=== PATIENT | female | born 1950 | race Caucasian/White ===

== ENCOUNTER 2016-05-03 05:05 | Inpatient (IN) | payer OTHER ==
[2016-04-12 08:39] VITALS: Ht 154.9 cm; Wt 132.6 kg
--- NOTE | 2016-04-12 09:27 | PAT Medication Instructions ---
Service Date Apr 12, 2016. Current Home Medication List Calcium/Vitamin D (Os-Christopher 500 Plus D), 1 TAB PO DAILY Fish Oil ([place]-3), 2 CAP PO NOON Multivitamin (Multivitamin), 1 TAB PO QAM Simvastatin (Zocor), 80 MG PO QPM Medication Instructions For Your Scheduled Surgery - Hold the following medications 10 days prior to surgery: Fish Oil ([place]-3), 2 CAP PO NOON - Hold the following medications the morning of surgery: Multivitamin (Multivitamin), 1 TAB PO QAM Calcium/Vitamin D (Os-Christopher 500 Plus D), 1 TAB PO DAILY - Take the following medications as scheduled the night before surgery: Simvastatin (Zocor), 80 MG PO QPM If you have any questions please call us at [phone] or [phone] ( Khloe) or [phone]
[2016-04-12 10:12] LABS: BASO % 0.5 %; BASO ABS # 0.03 K/uL (0-0.2); COMPLETE YES; EOS % 4.7 %; HEMATOCRIT 41.3 % (37-47); IG% 0.2 %; LYMPH % 25.2 %; MEAN CELL VOLUME 90.4 fL (80-100); MEAN CORPUSCULAR HEMOGLOBIN 30.9 pg (25-34); MEAN CORPUSCULAR HGB CONC 34.1 g/dl (32-36); MONO % 7.9 %; NEUT % 61.5 %; PLATELET COUNT 228 K/uL (130-400); RED BLOOD COUNT 4.57 M/uL (4.2-5.4); WHITE BLOOD COUNT 5.56 K/uL (4.8-10.8)
[2016-04-12 10:24] LABS: INR 0.9 (0.9-1.1)
--- NOTE | 2016-04-12 10:24 | DIAGNOSTIC IMAGING REPORT ---
CHEST PREADMISSION(PA/LAT) CLINICAL HISTORY: Preoperative chest COMPARISON STUDY: 01/22/2013 FINDINGS: The heart remains borderline enlarged. There is persistent aortic tortuosity/ectasia. There is no focal pulmonary consolidation. There is no failure. There are no pleural effusions.[ Degenerative changes are present within the dorsal spine. IMPRESSION: No significant change. No active disease in the chest. Electronically signed by: Kevin Benitez M.D. 04/12/2016 10:22 AM
[2016-04-12 10:33] LABS: BLOOD UREA NITROGEN 14 mg/dl (7-18); BUN/CREATININE RATIO 17.1 (10-20); C-REACTIVE PROTEIN < 0.29 mg/dl (0-0.29); CALCIUM 8.9 mg/dl (8.5-10.1); CARBON DIOXIDE 26 mmol/L (21-32); CHLORIDE 109 mmol/L (98-107); CREATININE 0.84 mg/dl (0.60-1.20); GLUCOSE 96 mg/dl (70-99); POTASSIUM 4.1 mmol/L (3.5-5.1); SODIUM 143 mmol/L (136-145)
--- NOTE | 2016-04-27 23:00 | HISTORY & PHYSICAL EXAMINATION ---
DATE OF ADMISSION: 05/03/2016 CHIEF COMPLAINT: Left knee pain. HISTORY OF PRESENT ILLNESS: A 65-year-old female who is now almost 7 years out from right knee replacement. The right knee is doing well. The left knee has been bothering for quite some time. It is starting to really limit her activities. It has gradually just gotten worse with weightbearing. Her walking tolerance is limited. She describes global pain. She would like to have her left knee replaced. She has been through extensive conservative care. Of note, the patient worked at [employer] and does live by herself. PAST MEDICAL HISTORY: Significant for: 1. Elevated cholesterol. 2. Obesity with BMI of 55. 3. Gastroesophageal reflux disease. PAST SURGICAL HISTORY: Previous surgeries include: 1. Cholecystectomy 2009. 2. Right knee replacement on 09/25/2009. ALLERGIES: PENICILLIN WHICH CAUSES HIVES. CURRENT MEDICINES: Include: 1. Zocor 80 mg at nighttime. 2. Multivitamin. 3. Calcium with vitamin D. 4. Fish oil. SOCIAL HISTORY: A 65-year-old female. She used to work at [employer]. Lives by herself. Does not smoke. FAMILY HISTORY: Noncontributory. REVIEW OF SYSTEMS: Negative for diabetes, neurologic problems, vascular problems, bleeding disorders. She is obese with a BMI of 55. PHYSICAL EXAMINATION: GENERAL: Reveals a healthy pleasant female who looks to be in reasonably good health. HEENT: Benign. NECK: Supple. No lymphadenopathy. LUNGS: Clear to auscultation. HEART: Regular rate and rhythm. ABDOMEN: Soft, nontender, nondistended. EXTREMITIES: Grossly neurovascularly intact except as follows: Examination of the left knee, the patient walks with a slight varus alignment to her knee. Very large soft tissue envelope. Range of motion is 5-10 degrees short of full extension and 115 degrees of flexion. There is no instability. X-RAYS: X-rays of the left knee were reviewed. It shows advanced left knee DJD. She has complete loss of medial joint space. She has got some tibial femoral subluxation. Pretty large osteophytes both anteriorly and posteriorly. ASSESSMENT: A 65-year-old female, 6+ years out from right knee replacement with advanced left knee degenerative joint disease. She has exhausted conservative care and would like to have her knee replaced. PLAN: We are going to take her to the operating room and do left total knee replacement. The risks and benefits of this procedure were explained to the patient including but not limited to DVT, PE, , infection, neurological injury, vascular injury, bleeding problem, pain, limited range of motion, stiffness, failure to relieve symptoms, incomplete relief of symptoms, need for further surgery in the future, need for bone graft, etc. The patient understands and desires to proceed. Informed consent was obtained. THE PATIENT APPARENTLY HAS A PENICILLIN ALLERGY WHICH CAUSES HIVES. We should be able to give her Ancef. The patient used to work at [employer]. I believe she still will be discharged to home and use [facility] home health program.
[~2016-05-03] VITALS: Ht 154.9 cm; Wt 132.6 kg
[2016-05-03] VITALS (9 sets, daily range): BP systolic 86–136; BP diastolic 52–86; PULSE 52–73; TEMP 36.4–36.9; O2SAT 94–99
[~2016-05-03 05:05] MED LIST: CALC500C70 PO; MULT-506 PO; OMEG10007 PO; SIMV80TA2 PO
[2016-05-03] MEDS ORDERED: GABAPENTIN 300 MG CAP PO SCH (06:00)
[2016-05-03] MEDS ORDERED: FAMOTIDINE 20 MG TAB PO SCH (06:00)
[2016-05-03] MEDS ORDERED: LACTATED RINGER'S 1000ML 1,000 ML IV SCH (06:00)
[2016-05-03] MEDS ORDERED: METOCLOPRAMIDE HCL 10 MG TAB PO SCH (06:00)
[2016-05-03] MEDS ORDERED: LACTATED RINGER'S 500 ML IV SCH (06:00)
[2016-05-03] MEDS ORDERED: CEFAZOLIN 3000 MG/65 ML D5W 65 ML IV SCH (06:00)
[2016-05-03] MEDS ORDERED: SCOPOLAMINE 1.5 MG TDSY TD SCH (06:00)
[2016-05-03] MEDS ORDERED: LACTATED RINGER'S 1000ML IV SCH (06:00)
[2016-05-03] MEDS ORDERED: BUPIVACAINE LIPOSOME 266 MG, BUPIVACAINE/EPINEPHRINE INJ 50 ML, SODIUM CHLORIDE 0.9% PF... INFIL SCH ×3 (06:00)
[2016-05-03] MEDS ORDERED: ACETAMINOPHEN 500 MG TAB PO SCH (06:00)
[2016-05-03] MEDS ORDERED: FENTANYL CITRATE INJ 50 MCG/1 ML 2 ML VIAL ONE (06:18)
[2016-05-03] MEDS ORDERED: ONDANSETRON INJ 2 MG/ML 2 ML VIAL ONE (06:18)
[2016-05-03] MEDS ORDERED: PROPOFOL IV EMULSION 10 MG/ML 20 ML VIAL IV ONE ×2 (06:18→08:17)
[2016-05-03] MEDS ORDERED: LIDOCAINE HCL 2% 2 ML VIAL (20MG/ML) ONE (06:18)
[2016-05-03] MEDS ORDERED: MIDAZOLAM HCL 1 MG/ML 2ML VIAL ONE (06:18)
[2016-05-03] MEDS ORDERED: BUPIVACAINE 0.5 % 5 MG/1 ML PF 10ML VIAL ONE (06:28)
[2016-05-03] MEDS ORDERED: TRANEXAMIC ACID INJ 1,000 MG in SODIUM CHLORIDE 0.9% 100ML 100 ML IV SCH ×2 (06:30→15:00)
[2016-05-03] MEDS ORDERED: BUPIVACAINE LIPOSOME 1/3% 266 MG/20 ML VIAL INFIL ONE (06:32)
[2016-05-03] MEDS ORDERED: ONDANSETRON INJ 2 MG/ML 2 ML VIAL IV PRN ×2 (06:45→09:00)
[2016-05-03] MEDS ORDERED: ATROPINE SULFATE 0.1 MG/ML 5ML SYR IV PRN (06:45)
[2016-05-03] MEDS ORDERED: EpHEDrine SULFATE INJ 50 MG/ML AMP IV PRN (06:45)
[2016-05-03] MEDS ORDERED: FENTANYL CITRATE INJ 50 MCG/1 ML 2 ML VIAL IV PRN (06:45)
--- NOTE | 2016-05-03 06:54 | History & Physical Bridge Note ---
H&P Re-Evaluation Bridge Note: I have examined the patient, reviewed the History & Physical and in the interval since the performance of the History & Physical I have noted the following changes of clinical significance: No changes noted
[2016-05-03] MEDS ORDERED: BACITRACIN 50000 UNIT VIAL IR ONE (07:52)
--- NOTE | 2016-05-03 08:58 | [facility] Post Operative Brief Note ---
Immediate Operative Summary Operative Date May 03, 2016. Pre-Operative Diagnosis Advanced Left Knee Degenerative Joint Disease Post-Operative Diagnosis Advanced Left Knee Degenerative Joint Disease Procedure(s) Performed Left Total Knee Arthroplasty Surgeon Dr. Calderon [employer] Worker Surgeon(s) HEATHER Grossman Estimated Blood Loss 50 ml Findings Left Knee DJD Fluids (cc crystalloids) 1500 cc Specimens A. Left Knee Bone and Tissue Drains None Anesthesia Spinal Complication(s) None Disposition Recovery Room / PACU
[2016-05-03] MEDS ORDERED: MoRPHine SULFATE 2 MG/ML CARP IV PRN (09:00)
[2016-05-03] MEDS ORDERED: MAGNESIUM HYDROXIDE SUSP 30 ML UDC PO PRN (09:00)
[2016-05-03] MEDS ORDERED: SILVER SULFADIAZINE 1% CR 50 GM JAR EXT PRN (09:00)
[2016-05-03] MEDS ORDERED: BISACODYL 10 MG SUPP PR PRN (09:00)
[2016-05-03] MEDS ORDERED: MULTIVITAMIN TAB PO SCH (09:00)
[2016-05-03] MEDS ORDERED: METOCLOPRAMIDE HCL INJ 5 MG/ML 2 ML VIAL IV PRN (09:00)
[2016-05-03] MEDS ORDERED: DiphenhydrAMINE HCL 50 MG/ML VIAL IV PRN (09:00)
[2016-05-03] MEDS ORDERED: ZOLPIDEM TARTRATE 5 MG TAB PO PRN (09:00)
[2016-05-03] MEDS ORDERED: ALUMINUM/MAGNESIUM/SIMETH (MAALOX MAX) 30 ML UDC PO PRN (09:00)
--- NOTE | 2016-05-03 09:36 | OPERATIVE REPORT ---
DATE OF OPERATION: 05/03/2016 SURGEON: Dr. Willie Calderon. BRANCH ASSOCIATE TELLER: HEATHER Morales PREOPERATIVE DIAGNOSIS: Left knee degenerative joint disease. POSTOPERATIVE DIAGNOSIS: Same. PROCEDURE PERFORMED: Left cemented posterior stabilized total knee arthroplasty. COMPLICATIONS: None. ESTIMATED BLOOD LOSS: 50 mL. FLUID REPLACEMENT: 1500 mL crystalloid fluid replacement. ANESTHESIA: Spinal with adductor canal block. DRAINS: None. SPECIMENS: Left knee sent for pathology. TOURNIQUET TIME: 62 minutes at 400 mmHg. OPERATIVE INDICATIONS: The patient is a 65-year-old morbidly obese female with a BMI of 55, who has had a long history of bilateral knee pain and discomfort. She had a right knee replaced about 6 years ago and has done well from this. Over the past several years, she developed increasing pain and discomfort in her left knee. She failed all conservative care. X-rays revealed advanced left knee DJD. The patient elected to proceed with operative treatment. OPERATIVE FINDINGS: Operative findings revealed advanced left knee DJD. She had grade 4 prmu-ny-quie disease in all 3 compartments. She had extensive disease in the medial compartment with extensive wear of the medial tibial plateau as well as medial femoral condyle. Large knee joint effusion. Large soft tissue envelope. She has chronic ACL deficient knee. OPERATIVE IMPLANTS: Operative implants consisted of: 1. A Biomet Vanguard size 67.5 left posterior stabilized femoral component. 2. Biomet size 71 tibial tray. 3. A 14-mm posterior stabilized polyethylene insert. 4. A 34 x 8.5 all poly patella. OPERATIVE PROCEDURE: The patient was taken to the operating room, identified and placed on the operating table in the supine position. All contact areas were appropriately padded. IV antibiotics were provided by anesthesia team. A spinal anesthetic and adductor canal block had been provided in the holding area. A Bingham catheter was placed in sterile fashion. A left thigh tourniquet was then placed in the left lower extremity and it was then prepped and draped in the usual sterile fashion. Left leg was elevated and exsanguinated with Esmarch and tourniquet was placed at 400 mmHg. An anterior approach to the left knee was then performed through a longitudinal incision centered over the patella. Sharp dissection was carried out through the subcutaneous tissues down to the level of the extensor mechanism. The medial parapatellar arthrotomy was then performed. Some subperiosteal dissection was carried out medially. The fat pad was resected from beneath the patellar tendon. The lateral patellofemoral ligament was released. The patella was subluxated laterally and the knee was flexed. The osteophytes were taken off the distal femur. The PCL and the remnant of the ACL were excised from the distal femur and the tibia subluxated anteriorly. The external tibial alignment jig was then placed in the anterior face of the tibia and adjusted 16 mm medially. Proximal tibial cut was made to remove about 2 mm of bone from the most deficient aspect of the medial tibial plateau. Some osteophytes were taken off medial and posteromedially. Tibia was sized to a size 71. Attention was then drawn to the femur. The distal femur was entered with a sharp drill bit. Intramedullary canal was suctioned. A left 5-degree valgus cutting guide was placed. Distal femoral cutting block was pinned in place. Distal femoral cut was made to take an additional 3 mm of bone off the distal femur. The femur was then sized to a size 67.5. We did downsize this at least half size. The AP cutting block was pinned parallel to the epicondylar axis, which was 4 degrees of external rotation. The anterior cut, anterior chamfer, posterior cut, and posterior chamfer cuts were made. Box cutting guide was placed and adjusted slight lateral and the box cut was made. The knee was flexed. The remnants of the medial and lateral meniscus were excised. The osteophytes were taken off the posterior aspect of the femur. She did have a very large posteromedial osteophyte. Trial femoral component was placed. Tibial tray was pinned in maximum external rotation and drill and stem punch were used to create defect in proximal tibia for the tibial tray. The knee was then trialed and the 14-mm insert fit most appropriately. Attention was then drawn to the patella. The patella was cleaned of all soft tissues. The patella thickness measured 22 and was cut down to 13. It was sized to a size 34 patella. Lug holes were drilled for a 34 patella. Lateral osteophyte was removed. Patella button was placed. Knee was taken through range of motion and patella tracked nicely with no thumbs test. Attention was then drawn toward placement of the permanent components. All trial components were removed. A bone plug was placed in the distal femur to limit blood loss. A double batch of Palacos G cement was mixed. A left size 67.5 posterior stabilized femoral component, size 71 tibial tray, 14-mm posterior stabilized polyethylene insert, and a 34 x 8.5 all poly patella were then cemented in place. Knee was brought out into full extension until cement hardened. A final cement check was then performed. Pericapsular tissues were injected with 100 mL of a combination of 20 mL of Exparel, 30 mL of normal saline, and 50 mL of 0.25% Marcaine with epinephrine. The patient did receive 1 gram of tranexamic acid. The tourniquet was let down for final tourniquet time of 62 minutes. Hemostasis was assured with use of electrocautery. The wound was once again irrigated. The extensor mechanism was then closed with a combination of #1 PDS suture and #1 Vicryl suture in a [id number] fashion. Extensor mechanism was checked and found to be intact. The subcutaneous tissues were then closed with 2-0 Dexon suture in a buried interrupted fashion. Skin was closed skin javier. Leg was then cleaned and dried and a sterile dressing with Xeroform, 4 x 4, sterile cast padding and Mathieu bandage were applied. The patient then transferred to the recovery room in stable condition. The patient tolerated the procedure well with no complications. All needle and sponge counts were correct at the end of the operation. I attest to the content of the Intraoperative Record and any orders documented therein. Any exceptions are noted below. [facility]
--- NOTE | 2016-05-03 09:46 | DIAGNOSTIC IMAGING REPORT ---
TWO VIEWS LEFT KNEE CLINICAL HISTORY: Postoperative examination. FINDINGS: AP and crosstable lateral portable views of the left knee are obtained. A left knee arthroplasty is in near anatomic alignment. There has been undersurface remodeling of the patella. No acute fracture is seen. There are expected postoperative changes around the knee including skin clips, soft tissue edema, and subcutaneous gas. IMPRESSION: Expected postoperative changes status post left knee arthroplasty. No acute fracture is seen. Electronically signed by: Eric Forrest M.D. 05/03/2016 9:43 AM Dictated Date/Time: 05/03/2016 9:43 AM
--- NOTE | 2016-05-03 10:07 | Anesthesiology Progress Note ---
Anesthesia Post Op Note Date & Time May 03, 2016 at 10:06 Vital Signs Pain Intensity: 0 Vital Signs Past 12 Hours Date Time Temp Pulse Resp B/P Pulse Ox O2 Delivery O2 Flow Rate FiO2 05/03/16 09:49 95/64 05/03/16 09:44 51 14 05/03/16 09:44 49 14 99 05/03/16 09:39 48 19 99 05/03/16 09:39 48 19 05/03/16 09:37 36.6 05/03/16 09:34 47 16 98/49 97 05/03/16 09:34 48 16 05/03/16 09:29 50 15 98 05/03/16 09:29 48 15 05/03/16 09:28 96/61 05/03/16 09:26 53 19 05/03/16 09:26 54 19 99 05/03/16 09:23 94/57 05/03/16 09:21 59 14 05/03/16 09:21 67 14 95 05/03/16 09:20 58 16 98 05/03/16 09:20 57 16 05/03/16 09:18 104/53 05/03/16 09:15 55 12 97 05/03/16 09:15 56 12 05/03/16 09:13 90/57 05/03/16 09:10 57 16 05/03/16 09:10 56 16 98 05/03/16 09:08 101/54 05/03/16 09:05 79 24 99 05/03/16 09:05 59 24 05/03/16 09:05 36.4 65 16 93/52 99 Nasal Cannula 2 05/03/16 05:42 36.5 68 20 131/86 94 Room Air Notes Mental Status: alert / awake / arousable, participated in evaluation Pt Amnestic to Procedure: Yes Nausea / Vomiting: adequately controlled Pain: adequately controlled Airway Patency, RR, SpO2: stable & adequate BP & HR: stable & adequate Hydration State: stable & adequate Neuraxial Anesthesia: was administered, sensory block is resolving Anesthetic Complications: no major complications apparent
[2016-05-03] MEDS: FERROUS GLUCONATE 324 MG TAB PO SCH ×2 (12:21→18:28)
[2016-05-03] MEDS: D5W AND 1/2NSS + 20MEQ KCL 1,000 ML IV SCH ×2 (12:21→18:29)
[2016-05-03] MEDS: TAPENTADOL ER 50 MG TABCR PO SCH ×2 (12:23→20:42)
[2016-05-03] MEDS: KETOROLAC TROMETHAMINE 15 MG/ML VIAL IV. SCH ×2 (12:26→18:29)
[2016-05-03] MEDS: DOCUSATE SODIUM 100 MG CAP PO SCH ×2 (12:32→20:41)
[2016-05-03] MEDS: ASPIRIN 325 MG ECTAB PO SCH ×2 (12:32→20:42)
[2016-05-03] MEDS: PANTOprazole SOD 40 MG TAB PO SCH (12:33)
[2016-05-03] MEDS: MULTIVITAMIN TAB PO SCH (12:33)
[2016-05-03] MEDS: CALCIUM 600MG + VIT D 400 IU TAB PO SCH (12:49)
--- NOTE | 2016-05-03 13:50 | PROGRESS NOTE ---
DATE: 05/03/2016 DATE: 05/03/2016. SUBJECTIVE: A 65-year-old white female postop from a left knee replacement. She is doing well. I had to wake her when I went into her room this afternoon. Denies any chest pain or shortness of breath. Not feeling dizzy or lightheaded. No significant knee pain yet. OBJECTIVE: VITAL SIGNS: Temperature is 36.4. Vital signs stable. PHYSICAL EXAMINATION: GENERAL: Reveals a pleasant elderly female. I had to wake her upon entering the room. She looks comfortable. LUNGS: Clear to auscultation. HEART: Regular rate and rhythm. ABDOMEN: Soft, nontender, nondistended. EXTREMITY EXAMINATION: Grossly neurovascularly intact except as follows: Examination of the left lower extremity reveals the leg to be well aligned. She can dorsiflex and plantarflex her foot appropriately. She is neurologically intact. X-RAYS: X-rays from the recovery room were reviewed. It shows a left cemented posterior stabilized total knee arthroplasty. Components looked to be in good position. No signs of problems. ASSESSMENT: A 65-year-old white female postop from a left knee replacement, doing well. Pain is controlled. She is neurologically intact. PLAN: 1. DVT prophylaxis including thigh-high TEDs, SCDs, and aspirin twice a day. 2. PT/OT. Weightbearing as tolerated. Left total knee protocol. 3. Pain control. Doing well with current pain regimen. 4. IV antibiotics x24 hours. 5. Disposition. She is planning to be discharged home with home health once adequately recovered.
[2016-05-03] MEDS: ACETAMINOPHEN 500 MG TAB PO SCH ×2 (14:19→22:06)
[2016-05-03] MEDS: CEFAZOLIN IV 2,000 MG in DEXTROSE 5% 50ML 50 ML IV SCH (15:35)
[2016-05-03] MEDS: CHECK SCOPOLAMINE PATCH PLACEMENT SCH (15:35)
[2016-05-03] MEDS: OXYCODONE HCL IR 5 MG TAB (IMMEDIATE RELEASE) PO PRN ×2 (15:40→20:43)
[2016-05-03] MEDS: SIMVASTATIN 80 MG TAB PO SCH (20:42)
[2016-05-04] MEDS: KETOROLAC TROMETHAMINE 15 MG/ML VIAL IV. SCH ×4 (00:05→18:37)
[2016-05-04] MEDS: CEFAZOLIN IV 2,000 MG in DEXTROSE 5% 50ML 50 ML IV SCH (00:05)
[2016-05-04] MEDS: CHECK SCOPOLAMINE PATCH PLACEMENT SCH ×3 (00:05→16:36)
[2016-05-04] MEDS: D5W AND 1/2NSS + 20MEQ KCL 1,000 ML IV SCH ×2 (01:43→07:22)
[2016-05-04 04:00] VITALS: BP 99/63; PULSE 66; TEMP 36.5; O2SAT 92
[2016-05-04] MEDS: OXYCODONE HCL IR 5 MG TAB (IMMEDIATE RELEASE) PO PRN ×4 (05:01→21:49)
[2016-05-04] MEDS: ACETAMINOPHEN 500 MG TAB PO SCH ×3 (06:07→21:53)
[2016-05-04 06:08] LABS: HEMATOCRIT 35.8 % (37-47); MEAN CELL VOLUME 91.3 fL (80-100); MEAN CORPUSCULAR HEMOGLOBIN 30.6 pg (25-34); MEAN CORPUSCULAR HGB CONC 33.5 g/dl (32-36); PLATELET COUNT 183 K/uL (130-400); RED BLOOD COUNT 3.92 M/uL (4.2-5.4); WHITE BLOOD COUNT 7.95 K/uL (4.8-10.8)
[2016-05-04 06:34] LABS: BUN/CREATININE RATIO 19.3 (10-20); CALCIUM 8.2 mg/dl (8.5-10.1); CREATININE 1.1 mg/dl (0.60-1.20); POTASSIUM 4.7 mmol/L (3.5-5.1)
[2016-05-04 07:10] VITALS: BP 120/88; PULSE 76; TEMP 36.6; O2SAT 94
[2016-05-04] MEDS: FERROUS GLUCONATE 324 MG TAB PO SCH ×3 (09:10→18:31)
[2016-05-04] MEDS: MULTIVITAMIN TAB PO SCH (09:10)
[2016-05-04] MEDS: ASPIRIN 325 MG ECTAB PO SCH ×2 (09:10→21:49)
[2016-05-04] MEDS: CALCIUM 600MG + VIT D 400 IU TAB PO SCH (09:10)
[2016-05-04] MEDS: DOCUSATE SODIUM 100 MG CAP PO SCH ×2 (09:10→21:49)
[2016-05-04] MEDS: TAPENTADOL ER 50 MG TABCR PO SCH ×2 (09:11→21:00)
[2016-05-04] MEDS: PANTOprazole SOD 40 MG TAB PO SCH (09:11)
--- NOTE | 2016-05-04 09:39 | Anesthesiology Progress Note ---
Anesthesia Post Op Note Date & Time May 04, 2016 at 09:39 Vital Signs Pain Intensity: 6.0 Vital Signs Past 12 Hours Date Time Temp Pulse Resp B/P Pulse Ox O2 Delivery O2 Flow Rate FiO2 05/04/16 08:34 Room Air 05/04/16 07:10 36.6 76 20 120/88 94 Room Air 05/04/16 04:00 36.5 66 18 99/63 92 Room Air 05/04/16 00:00 Room Air 05/03/16 23:25 36.9 73 20 104/71 94 Room Air Notes Mental Status: alert / awake / arousable, participated in evaluation Pt Amnestic to Procedure: Yes Nausea / Vomiting: adequately controlled Pain: adequately controlled Airway Patency, RR, SpO2: stable & adequate BP & HR: stable & adequate Hydration State: stable & adequate Anesthetic Complications: no major complications apparent
[2016-05-04 11:20] VITALS: BP 176/95; PULSE 72; TEMP 36.8; O2SAT 95
[2016-05-04] MEDS ORDERED: ASPEC325 PO (13:00)
[2016-05-04] MEDS ORDERED: NCYSR50 PO (13:00)
[2016-05-04] MEDS ORDERED: ACET-1138 PO (13:00)
[2016-05-04] MEDS ORDERED: RXC5 PO (13:00)
--- NOTE | 2016-05-04 13:09 | PROGRESS NOTE ---
DATE: 05/04/2016 DATE: 05/04/2016. SUBJECTIVE: A 65-year-old white female postop day 1 from a left knee replacement. She is doing pretty well. Some moderate pain. Frustrated that she is having trouble lifting her leg a bit. She has changed her mind and decided she might go to [facility] for a while. She lives alone. No chest pain or shortness of breath. Not feeling dizzy or lightheaded. Rates her pain at 6/10. OBJECTIVE: VITAL SIGNS: Temperature 36.6. Vital signs stable. PHYSICAL EXAMINATION: GENERAL: Reveals a pleasant, middle-aged female. She is sitting up in bed and talking to a friend. She looks pretty comfortable. LUNGS: Clear to auscultation. HEART: Regular rate and rhythm. ABDOMEN: Soft, nontender, nondistended. EXTREMITY EXAMINATION: Grossly neurovascularly intact except as follows: Examination of the left lower extremity reveals the dressing to be clean, dry and intact. She can dorsiflex and plantarflex her foot appropriately. She is neurologically intact. LABORATORY DATA: Hemoglobin 12.0, hematocrit 35.8. Electrolytes are stable. ASSESSMENT: A 65-year-old white female postop day 1 from a left total knee replacement, doing pretty well. It is normal not to be able to lift the leg for a week or 2 due to the quad incision. The pain seems reasonably controlled. She is neurologically intact. PLAN: 1. DVT prophylaxis including thigh-high TEDs, SCDs, and aspirin twice a day. 2. PT/OT. Weightbearing as tolerated. Left total knee protocol. 3. Pain control. Doing pretty well with current pain regimen. 4. Disposition: She is hoping to be discharged to [facility] for a brief rehab stay once stable.
[2016-05-04 15:46] VITALS: BP 128/85; PULSE 71; TEMP 36.7; O2SAT 92
--- NOTE | 2016-05-04 21:18 | Discharge Instructions ---
Discharge Instructions Admission Reason for Admission: Left Knee Pain And Osteoarthritis Discharge Discharge Diagnosis / Problem: Left Knee Replacement Discharge Goals Goal(s): Decrease discomfort, Improve function, Increase independence, Improve disease control, Therapeutic intervention Activity Recommendations Activity Level: Assistance Required Therapies: Physical Therapy, Occupational Therapy Weightbearing Status: Left weightbearing . Additional Information Patient informed of condition: Yes Advance Directives: No DNR: No Level of Care: Skilled Communicable Disease: No Prognosis: Improving Bingham Catheter: No Instructions / Follow-Up Instructions / Follow-Up ACTIVITY RECOMMENDATIONS: Physical Therapy: * You will go to physical therapy three times each week for four to six weeks after your surgery in order to regain your knee range of motion and to retrain your knee to work properly. * It is just as important to make sure you are getting your knee perfectly straight as it is to regain your knee bend. * Taking a pain pill an hour before therapy can help you have a more productive and comfortable therapy session. Home Exercise: * You were shown a series of exercises (heel props, heel slides, etc.) in the hospital. Do these exercises three to four times each day including the exercises you were shown in physical therapy. Walking: * Get up and walk several times each day. For the first four weeks, try not to stand or walk for more than one hour at a time. If you do stand or walk for more than one hour, you will not hurt anything, but your knee and leg will likely swell. * As you feel comfortable, you may change from the walker or crutches to a cane and then to independent walking. MEDICATIONS: New Medicine: * You will likely be taking one or more of these medications: 1. Nucynta - A long-acting pain medication. Take 1 tablet twice a day for the first ten days to decrease your baseline level of pain. 2. Oxycodone - A quick and shorter-acting pain medication. Take one to two tablets every four to six hours to lessen your pain. 3. Aspirin - Thins your blood to lessen the chance of forming a blood clot. * The most common side effects of pain medicine and iron are nausea and constipation. If nausea or constipation is too much of a problem or if you have any questions about your new medicines or doses, call [facility] at . We will try to help you manage these issues. VERY IMPORTANT TO READ AND REVIEW" Pain: * The immediate post-operative period after knee replacement surgery is often quite painful. * You are given a prescription for pain medicine. You should take it, as directed, when you need it, especially before physical therapy and before going to bed. Pain that interferes with sleep is very common and can last several months. * You will likely need pain medicine for the first four to six weeks. It will not stop all of the pain. The pain will lessen and as you feel better, you may change to milder pain medicine such as Tylenol. * The most common side effects of pain medicine are nausea and constipation, so don't take more than you need. SPECIAL CARE INSTRUCTIONS: TEDs/Elastic Stockings: * The white elastic stockings help limit swelling and prevent blood clots from forming in your legs. The more you wear them, the more they work. * Wear them for six weeks after knee replacement surgery and four weeks after partial knee replacement. Prevention of Infection: * Take antibiotics one hour before any dental cleaning, dental work, urological procedure, gastrointestinal procedure or any invasive surgery in order to prevent your new joint from getting infected. * You may get the antibiotics from the doctor performing the procedure or you may call our office at before and we will call in a prescription to the pharmacy of your choice. Things to Watch For: * Drainage from the incision site that occurs more than one week after your surgery. * Severely increased knee/leg pain or swelling. * Increased redness at the incision site. * Fever above 102 degrees Fahrenheit. * Unusual chest pain or shortness of breath. * Unusual pain or burning with urination. Call [facility] at with any of the above problems or if you have any questions about your medicines or recovery. FOLLOW UP VISIT: Make an appointment to see your doctor for approximately two weeks after surgery for a progress check and staple removal by calling the office at . Current Hospital Diet Patient's current hospital diet: Regular Diet Discharge Diet Recommended Diet: Regular Diet Procedures Procedures Performed: Left Total Knee Arthroplasty Pending Studies Studies pending at discharge: no Medical Emergencies . Who to Call and When: Medical Emergencies: If at any time you feel your situation is an emergency, please call [phone] immediately. . Non-Emergent Contact Non-Emergency issues call your: Surgeon . . "Provider Documentation" section prepared by Willie Calderon. Core Measure Problem Core Measures: None
[2016-05-04] MEDS: SIMVASTATIN 80 MG TAB PO SCH (21:49)
[2016-05-04 23:45] VITALS: BP 118/77; PULSE 76; TEMP 37; O2SAT 93
[2016-05-05] MEDS: CHECK SCOPOLAMINE PATCH PLACEMENT SCH ×2 (00:26→07:45)
[2016-05-05] MEDS: KETOROLAC TROMETHAMINE 15 MG/ML VIAL IV. SCH ×2 (00:28→06:19)
[2016-05-05] MEDS: ACETAMINOPHEN 500 MG TAB PO SCH (06:18)
[2016-05-05 06:53] VITALS: BP 111/73; PULSE 69; TEMP 36.8; O2SAT 95
--- NOTE | 2016-05-05 07:44 | PROGRESS NOTE ---
DATE: 05/05/2016 SUBJECTIVE: A 65-year-old white female postop day 2 from left knee replacement. She is doing pretty well. Pain seems to be improved today. Denies any chest pain or shortness of breath. Not feeling dizzy or lightheaded. OBJECTIVE: VITAL SIGNS: Temperature 36.8. Vital signs stable. PHYSICAL EXAMINATION: GENERAL: Reveals healthy, pleasant, middle-aged female. She is sitting up in bed, looks pretty comfortable. LUNGS: Clear to auscultation. HEART: Has a regular rate and rhythm. ABDOMEN: Soft, nontender, nondistended. EXTREMITIES: Grossly neurovascularly intact except as follows: Examination of the left lower extremity reveals the leg to be well aligned. The incision is clean, dry and intact. She can dorsiflex and plantarflex her foot appropriately. ASSESSMENT: A 65-year-old white female postop day 2 from a left knee replacement, doing pretty well. Pain seems to be improved. PLAN: 1. DVT prophylaxis including thigh-high TEDs, SCDs, and aspirin twice a day. 2. PT/OT. Weightbearing as tolerated. Left total knee protocol. 3. Pain control, doing better with current pain regimen. 4. Disposition: She is hoping to be discharged to [facility] for a brief rehab stay once medically stable. SHAHID
[2016-05-05] MEDS: FERROUS GLUCONATE 324 MG TAB PO SCH ×2 (07:46→12:41)
[2016-05-05] MEDS: DOCUSATE SODIUM 100 MG CAP PO SCH (07:46)
[2016-05-05] MEDS: TAPENTADOL ER 50 MG TABCR PO SCH (07:46)
[2016-05-05] MEDS: CALCIUM 600MG + VIT D 400 IU TAB PO SCH (07:46)
[2016-05-05] MEDS: PANTOprazole SOD 40 MG TAB PO SCH (07:46)
[2016-05-05] MEDS: MULTIVITAMIN TAB PO SCH (07:46)
[2016-05-05] MEDS: ASPIRIN 325 MG ECTAB PO SCH (07:47)
--- NOTE | 2016-05-05 07:57 | PROGRESS NOTE ---
DATE: 05/05/2016 SUBJECTIVE: A 65-year-old white female, postop day 2 from left knee replacement. She is doing better this morning. Pain has improved. No chest pain or shortness of breath. Not feeling dizzy or lightheaded. OBJECTIVE: VITAL SIGNS: Temperature 36.8. Vital signs are stable. PHYSICAL EXAMINATION: GENERAL: Reveals a healthy, pleasant middle-aged female. She is lying in bed, looks pretty comfortable. LUNGS: Clear to auscultation. HEART: Regular rate and rhythm. ABDOMEN: Soft, nontender and nondistended. EXTREMITIES: Grossly neurovascularly intact except as follows: Examination of the left lower extremity reveals the leg to be clean and well-aligned. Her incision is clean, dry and intact. She can dorsiflex and plantarflex her foot appropriately. She is neurologically intact. ASSESSMENT: A 65-year-old white female postoperative day 2 from left knee replacement, doing pretty well. Pain is improved. PLAN: 1. DVT prophylaxis including thigh-high TEDs, SCDs and aspirin twice a day. 2. PT/OT. Weightbearing as tolerated. Left total knee protocol. 3. Pain control, doing pretty well with current pain regimen. The pain seems to be improved. 4. Disposition: She has decided she would like to go to [facility]. We will look into trying to get her to [facility] once medically stable.
[2016-05-05 09:28] VITALS: BP 111/73; PULSE 69; TEMP 36.8; O2SAT 95
[2016-05-05] MEDS: OXYCODONE HCL IR 5 MG TAB (IMMEDIATE RELEASE) PO PRN (10:56)
--- NOTE | 2016-05-17 13:32 | DISCHARGE SUMMARY ---
ADMITTING PHYSICIAN AND SURGEON: Dr. Calderon. ADMITTING DIAGNOSIS: Left knee degenerative joint disease. SURGERY PERFORMED: Left total knee replacement. SECONDARY DIAGNOSES: Elevated cholesterol, obesity, gastroesophageal reflux disease. CONSULTS: None obtained. HISTORY AND PHYSICAL EXAMINATION: Well documented in the patient's chart. HOSPITAL COURSE: The patient was admitted on 05/03/2016, underwent total knee arthroplasty, tolerated the procedure well. There were no complications. She was transferred to the PACU postoperatively and later to the orthopedic floor for further care. She was given Ancef for antibiotic prophylaxis, VIOLETA stockings, SCDs and aspirin for DVT prophylaxis. Hemoglobin, hematocrit and vital signs were monitored during her hospital stay and remained stable. She did not require any blood transfusions. There were no complications. By postoperative day 2, she was tolerating a general diet, pain was controlled with oral pain medicine. She was participating in physical therapy and had no signs or symptoms of deep vein thrombosis. Postop day 2, she was discharged to a long-term facility. She was given printed discharge instructions including prescriptions for extra strength Tylenol, aspirin 325 mg b.i.d., oxycodone and Nucynta. Continue her home medications, continue physical therapy, weightbearing as tolerated. VIOLETA stockings. She will follow up in 10-12 days or sooner if there are problems or concerns.
== END 2016-05-05 14:21 | DRG 470 ==
LOC: ENRESERVTM → ENRESERVDT → C.ACU 05:05 → C.3E 06:45
PROVIDERS: ADMIT Orthopaedic Surgery Sports Medicine; ATTEND Orthopaedic Surgery Sports Medicine
PROC: 0SRD0J9 Replacement of Left Knee Joint with Synthetic Substitute, Cemented, Open Approach (ICD-10-PCS; principal; 2016-05-03 07:00)
DX: M17.12 Unilateral primary osteoarthritis, left knee (principal); Z68.43 Body mass index [BMI] 50.0-59.9, adult; M25.462 Effusion, left knee; E78.00 Pure hypercholesterolemia, unspecified; J44.9 Chronic obstructive pulmonary disease, unspecified; E66.01 Morbid (severe) obesity due to excess calories; Z87.891 Personal history of nicotine dependence; Z96.651 Presence of right artificial knee joint; Z79.899 Other long term (current) drug therapy

== ENCOUNTER → 2016-05-23 | Outpatient (CLI) | payer OTHER ==
[~2016-05-23] MED LIST changes: +ACET-1138 PO; +ASPEC325 PO; +NCYSR50 PO; +RXC5 PO
[2016-05-23 17:27] LABS: BASO % 0.6 %; BASO ABS # 0.05 K/uL (0-0.2); COMPLETE YES; EOS % 11.7 %; IG% 0.2 %; LYMPH % 18.3 %; LYMPH ABS # 1.62 K/uL (1.2-3.4); MEAN CELL VOLUME 92.4 fL (80-100); MEAN CORPUSCULAR HEMOGLOBIN 30.7 pg (25-34); MEAN CORPUSCULAR HGB CONC 33.3 g/dl (32-36); MEAN PLATELET VOLUME 9.7 fL (7.4-10.4); MONO % 5.7 %; NEUT % 63.5 %; PLATELET COUNT 453 K/uL (130-400); RED BLOOD COUNT 4.33 M/uL (4.2-5.4); WHITE BLOOD COUNT 8.87 K/uL (4.8-10.8)
[2016-05-23 17:52] LABS: ALT/SGPT 23 U/L (12-78); AST/SGOT 5 U/L (15-37); BLOOD UREA NITROGEN 18 mg/dl (7-18); BUN/CREATININE RATIO 19.7 (10-20); CALCIUM 9.3 mg/dl (8.5-10.1); CARBON DIOXIDE 26 mmol/L (21-32); CHLORIDE 105 mmol/L (98-107); CREATININE 0.91 mg/dl (0.60-1.20); GLUCOSE 94 mg/dl (70-99); POTASSIUM 3.8 mmol/L (3.5-5.1); SODIUM 141 mmol/L (136-145)
[2016-05-23 18:02] LABS: ALKALINE PHOSPHATASE 111 U/L (45-117); THYROID STIMULATING HORMONE 0.668 uIu/ml (0.300-4.500)
== END | disposition home or self-care (01) ==
LOC: C.LABBFT 12:41
PROVIDERS: ATTEND Internal Medicine
DX: R21 Rash and other nonspecific skin eruption (principal); E66.01 Morbid (severe) obesity due to excess calories; E55.9 Vitamin D deficiency, unspecified

== ENCOUNTER → 2016-06-06 | Outpatient (CLI) | payer OTHER | END | disposition home or self-care (01) | LOC: C.MAMM 08:29 | PROVIDERS: ATTEND Internal Medicine | DX: M85.851 Other specified disorders of bone density and structure, right thigh (principal); M85.852 Other specified disorders of bone density and structure, left thigh ==

== ENCOUNTER → 2016-07-15 | Outpatient (CLI) | payer OTHER | END | disposition home or self-care (01) | LOC: C.LABBFT 10:55 | PROVIDERS: ATTEND Internal Medicine | DX: E55.9 Vitamin D deficiency, unspecified (principal) ==

== ENCOUNTER → 2016-09-23 | Outpatient (CLI) | payer OTHER ==
--- NOTE | 2016-09-23 13:27 | MAMMOGRAPHY REPORT ---
BILATERAL DIGITAL SCREENING MAMMOGRAM WITH CAD: 09/23/2016 CLINICAL HISTORY: Routine screening. TECHNIQUE: Current study was also evaluated with a Computer Aided Detection (CAD) system. Bilateral CC and MLO views were obtained. COMPARISON: Comparison is made to exams dated: 09/22/2015 mammogram, 09/19/2014 mammogram, 09/05/2013 m ammogram, 08/30/2012 mammogram, 08/24/2011 mammogram, and 08/19/2010 mammogram - [facility] enter. BREAST COMPOSITION: The tissue of both breasts is almost entirely fatty. FINDINGS: No suspicious masses, calcifications, or areas of architectural distortion are noted in ei ther breast. There has been no significant interval change compared to prior exams. Scattered bilate ral benign appearing calcifications are not significantly changed. A linear scar marker denotes a sc ar on the right lateral breast. Small circumscribed benign-appearing 4 mm mass seen within the right subareolar breast on the cc view is stable. IMPRESSION: ACR BI-RADS CATEGORY 2: BENIGN There is no mammographic evidence of malignancy. A 1 year screening mammogram is recommended. The pa tient will receive written notification of the results. Approximately 10% of breast cancers are not detected with mammography. A negative mammographic report should not delay biopsy if a clinically suggestive mass is present. Sara Paz M.D. /:09/23/2016 10:56:25 [employer] Sales Representative: Clifford MENDEZ)(Richard), [facility] letter sent: Normal 1/2 BI-RADS Code: ACR BI-RADS Category 2: Benign
== END | disposition home or self-care (01) ==
LOC: C.MAMM 09:21
PROVIDERS: ATTEND Obstetrics & Gynecology
DX: Z12.31 Encounter for screening mammogram for malignant neoplasm of breast (principal)

== ENCOUNTER → 2017-02-20 | Outpatient (CLI) | payer OTHER | END | disposition home or self-care (01) | LOC: C.PAPS 11:43 | PROVIDERS: ATTEND Obstetrics & Gynecology | DX: Z01.419 Encounter for gynecological examination (general) (routine) without abnormal findings (principal) ==

== ENCOUNTER → 2017-04-19 | Outpatient (CLI) | payer OTHER | END | disposition home or self-care (01) | LOC: C.LABBFT 11:43 | PROVIDERS: ATTEND Physician Assistant Medical | DX: E55.9 Vitamin D deficiency, unspecified (principal) ==